=== PATIENT | male | born 1995 | race Caucasian/White ===

== ENCOUNTER 2024-12-03 05:43 | Emergency (ER) | payer BC, SELFPAY ==
--- NOTE | ~2024-12-03 | CT_ITS ---
EXAMINATION: CT abdomen pelvis w con DATE: 12/03/2024 06:59 INDICATION: Abdominal pain TECHNIQUE: Computed tomography (CT) of the abdomen and pelvis was performed with 100 mL Omnipaque-350 intravenous contrast. Automated exposure control and iterative reconstruction technique were employed. The dose-length product was 262.90 mGy-cm. COMPARISON: None FINDINGS: Lung bases are clear. Heart size is normal. No pericardial or pleural effusion. Small sliding-type hiatal hernia. Liver, gallbladder, spleen and pancreas, bilateral adrenal glands and right kidney are normal. Delayed left nephrogram, mild hydroureteronephrosis and minimal perinephric stranding secondary to obstructing 3 mm stone at the left ureterovesicular junction. There are couple hypodense lesions in left kidney of slightly greater than simple fluid attenuation, the larger measuring 1.6 cm most likely representing complex proteinaceous/hemorrhagic cysts although differential includes solid neoplasm. Bladder is normal. Bowels including the appendix are normal. No free intraperitoneal gas or fluid. No pathologically enlarged abdominal or pelvic lymphadenopathy. L2 bone [place]. IMPRESSION: 1. Obstructing 3 mm stone at the left ureterovesicular junction with mild left hydroureteronephrosis. 2. Couple indeterminate left renal lesions the larger measuring 1.6 cm likely proteinaceous/hemorrhagic cysts although differential would include solid neoplasm. This would be unlikely given patient age but could consider follow-up renal ultrasound. 3. Small sliding-type hiatal hernia. Reviewed, dictated and finalized at location A. IMPRESSION: 1. Obstructing 3 mm stone at the left ureterovesicular junction with mild left hydroureteronephrosis. 2. Couple indeterminate left renal lesions the larger measuring 1.6 cm likely p roteinaceous/hemorrhagic cysts although differential would include solid neopla sm. This would be unlikely given patient age but could consider follow-up renal ultrasound. 3. Small sliding-type hiatal hernia.
[2024-12-03 05:59] VITALS: BP 146/91; PULSE 84; RESP 20; TEMP 36.2; O2SAT 100
--- NOTE | 2024-12-03 06:12 | ED.GENADULT ---
HPI - General Adult General Chief complaint: Abdominal Pain <Isaak Lai MD - Last Filed: 12/03/24 06:44> Stated complaint: abd pain <Isaak Lai MD - Last Filed: 12/03/24 06:44> Time Seen by Provider: 12/03/24 06:06 <Isaak Lai MD - Last Filed: 12/03/24 06:44> History of Present Illness HPI narrative: Patient 29-year-old gentleman presents emergency department chief complaint of abdominal pain. Patient reports he woke up about 3 hours ago and started having pain on the left side of his abdomen patient reports a fullness patient reports not improved by anything reports no diarrhea reports he has felt a little nauseated but no vomiting. Patient reports no prior surgical history denies fever <Isaak Lai MD - Last Filed: 12/03/24 06:44> Related Data Allergies/adverse reactions: Allergies Allergy/AdvReac Type Severity Reaction Status Date / Time No Known Allergies Allergy Verified 12/03/24 07:35 <Isaak Lai MD - Last Filed: 12/03/24 06:44> Review of Systems Review of Systems: A 10 system review of systems was completed on the patient and is negative except for what is stated in the HPI. Nursing and ancillary documentation was reviewed. <Isaak Lai MD - Last Filed: 12/03/24 06:44> Exam Narrative: GENERAL: Well-appearing, well-nourished, and in no acute distress. HEAD: Normocephalic, atraumatic. EYES: PERRLA and EOMI. ENT: Nares clear, no rhinorrhea or epistaxis. Mucous membranes moist. NECK: Supple. CHEST: Clear to auscultation. No respiratory distress. HEART: Regular rate and rhythm. No murmur heard. Normal peripheral pulses. ABDOMEN: Soft, tenderness to palpation on the left side of the abdomen, nondistended, normal active bowel sounds. EXTREMITIES: Normal range of motion. No edema. SKIN: Warm, dry, no rash. NEURO: No focal deficits. Alert and oriented x3. PSYCH: Normal mood and affect. <Isaak Lai MD - Last Filed: 12/03/24 06:44> Course Course Emergency Course: I assumed care of this patient at shift change with pending CT and disposition. I did re-examine the patient he still continues to have pain his mom who is at bedside states that Dilaudid helps with pain requesting IV Dilaudid. I did inform him about the lab work and CT findings. <Tristan Daley MD - Last Filed: 12/03/24 10:00> Reevaluation(s) Date: 12/03/24 <Tristan Daley MD - Last Filed: 12/03/24 10:00> Time: 09:54 <Tristan Daley MD - Last Filed: 12/03/24 10:00> Reevaluation #2: Patient feeling much better. Advised him to drink more fluids take medication as prescribed, follow-up with the urologist. <Tristan Daley MD - Last Filed: 12/03/24 10:00> Vital Signs Vital signs: Vital Signs Temperature 36.2 C L 12/03/24 05:59 Pulse Rate 84 12/03/24 05:59 Respiratory Rate 20 12/03/24 05:59 Blood Pressure 146/91 H 12/03/24 05:59 Pulse Oximetry 100 12/03/24 05:59 Temperature 36.2 C L 12/03/24 05:59 Pulse Rate 74 12/03/24 08:24 Respiratory Rate 14 12/03/24 08:24 Blood Pressure 139/88 12/03/24 08:24 Pulse Oximetry 98 12/03/24 08:24 <Isaak Lai MD - Last Filed: 12/03/24 06:44> Vital Signs Temperature 36.2 C L 12/03/24 05:59 Pulse Rate 84 12/03/24 05:59 Respiratory Rate 20 12/03/24 05:59 Blood Pressure 146/91 H 12/03/24 05:59 Pulse Oximetry 100 12/03/24 05:59 Temperature 36.2 C L 12/03/24 05:59 Pulse Rate 74 12/03/24 08:24 Respiratory Rate 14 12/03/24 08:24 Blood Pressure 139/88 12/03/24 08:24 Pulse Oximetry 98 12/03/24 08:24 <Tristan Daley MD - Last Filed: 12/03/24 10:00> Medical Decision Making MDM Narrative Medical decision making narrative: Differential diagnosis includes gastritis, colitis cystitis, pancreatitis, intra-abdominal infection, gastroenteritis <Isaak Lai MD - Last Filed: 12/03/24 06:44> Vital Signs Vital Signs: Vital Signs Temperature 36.2 C L 12/03/24 05:59 Pulse Rate 84 12/03/24 05:59 Respiratory Rate 20 12/03/24 05:59 Blood Pressure 146/91 H 12/03/24 05:59 Pulse Oximetry 100 12/03/24 05:59 Temperature 36.2 C L 12/03/24 05:59 Pulse Rate 74 12/03/24 08:24 Respiratory Rate 14 12/03/24 08:24 Blood Pressure 139/88 12/03/24 08:24 Pulse Oximetry 98 12/03/24 08:24 <Isaak Lai MD - Last Filed: 12/03/24 06:44> Vital Signs Temperature 36.2 C L 12/03/24 05:59 Pulse Rate 84 12/03/24 05:59 Respiratory Rate 20 12/03/24 05:59 Blood Pressure 146/91 H 12/03/24 05:59 Pulse Oximetry 100 12/03/24 05:59 Temperature 36.2 C L 12/03/24 05:59 Pulse Rate 74 12/03/24 08:24 Respiratory Rate 14 12/03/24 08:24 Blood Pressure 139/88 12/03/24 08:24 Pulse Oximetry 98 12/03/24 08:24 <Tristan Daley MD - Last Filed: 12/03/24 10:00> Lab Data Result diagrams: 12/03/24 05:56 12/03/24 05:56 <Isaak Lai MD - Last Filed: 12/03/24 06:44> Labs: Lab Results 12/03/24 Range/Units 05:56 WBC 7.7 (4.5-10.0) K/mm3 RBC 4.55 L (4.6-6.20) M/mm3 Hgb 14.1 (14.0-18.0) g/dL Hct 41.4 L (42.0-52.0) % MCV 91.0 (80-100) fl MCH 31.0 (26-34) pg MCHC 34.1 (32-36) g/dl RDW 12.1 (11.5-14.5) % Plt Count 254 (150-375) k/mm3 MPV 9.1 (7.4-10.4) fl Immature Gran % (Auto) 0.4 (0-0.5) % Neut % (Auto) 42.0 L (45.5-73.1) % Lymph % (Auto) 42.5 (18.3-44.2) % [place] % (Auto) 9.5 H (2.6-8.5) % Eos % (Auto) 4.8 H (0-4.4) % Baso % (Auto) 0.8 (0.2-1.2) % Lymph # (Auto) 3.28 H (0.9-3.2) K/mm3 [place] # (Auto) 0.7 H (0.1-0.6) K/mm3 Eos # (Auto) 0.4 H (0-0.3) K/mm3 Baso # (Auto) 0.1 (0.0-0.1) K/mm3 Abs Immat Gran (auto) 0.03 (0.00-0.031) K/mm3 Absolute Neuts (auto) 3.3 (1.3-6.7) K/mm3 Absolute Nucleated RBC 0.000 (0.0-0.012) K/mm3 Nucleated RBC % 0.0 (0.0-0.2) % Sodium 137 (137-145) mmol/L Potassium 3.5 (3.4-5.0) mmol/L Chloride 104 (98-107) mmol/L Carbon Dioxide 23 (22-30) mmol/L Anion Gap 10 (4-12) mmol/L BUN 18 (9-20) mg/dL Creatinine 1.03 (0.7-1.3) mg/dL Estim Creat Clear Calc 98 ml/min Estimated GFR > 60 (59 - ) Glucose 134 H (65-110) mg/dL Calcium 9.1 (8.4-10.2) mg/dL Total Bilirubin 0.3 (0.2-1.3) mg/dL AST 28 (17-59) U/L ALT 22 (6-50) U/L Alkaline Phosphatase 74 (38-126) U/L Total Protein 7.5 (6.3-8.2) g/dL Albumin 4.6 (3.5-5.1) g/dL Lipase 457 H (23-300) U/L Urine Color Yellow (Yellow) Urine Appearance Cloudy H (Clear) Urine pH 5.5 (5.0-9.0) Ur Specific [place] 1.019 (1.001-1.035) Urine Protein Negative (Negative) mg/dL Urine Glucose (UA) Negative (Negative) mg/dL Urine Ketones Negative (Negative) mg/dL Ur Blood (Man) 3+ H (Negative) Urine Nitrate Negative (Negative) Urine Bilirubin Negative (Negative) Urine Urobilinogen 0.2 (<2.0) mg/dL Leukocyte Esterase Rfl Negative (Negative) GIRMA/UL Urine RBC >100 H (0-2) /hpf Urine WBC 0-5 (0-3) /hpf Ur Squamous Epith Cells None seen (Few) /hpf Urine Bacteria None seen /hpf Urine Casts 0-2 <Isaak Lai MD - Last Filed: 12/03/24 06:44> Lab Results 12/03/24 Range/Units 05:56 WBC 7.7 (4.5-10.0) K/mm3 RBC 4.55 L (4.6-6.20) M/mm3 Hgb 14.1 (14.0-18.0) g/dL Hct 41.4 L (42.0-52.0) % MCV 91.0 (80-100) fl MCH 31.0 (26-34) pg MCHC 34.1 (32-36) g/dl RDW 12.1 (11.5-14.5) % Plt Count 254 (150-375) k/mm3 MPV 9.1 (7.4-10.4) fl Immature Gran % (Auto) 0.4 (0-0.5) % Neut % (Auto) 42.0 L (45.5-73.1) % Lymph % (Auto) 42.5 (18.3-44.2) % [place] % (Auto) 9.5 H (2.6-8.5) % Eos % (Auto) 4.8 H (0-4.4) % Baso % (Auto) 0.8 (0.2-1.2) % Lymph # (Auto) 3.28 H (0.9-3.2) K/mm3 [place] # (Auto) 0.7 H (0.1-0.6) K/mm3 Eos # (Auto) 0.4 H (0-0.3) K/mm3 Baso # (Auto) 0.1 (0.0-0.1) K/mm3 Abs Immat Gran (auto) 0.03 (0.00-0.031) K/mm3 Absolute Neuts (auto) 3.3 (1.3-6.7) K/mm3 Absolute Nucleated RBC 0.000 (0.0-0.012) K/mm3 Nucleated RBC % 0.0 (0.0-0.2) % Sodium 137 (137-145) mmol/L Potassium 3.5 (3.4-5.0) mmol/L Chloride 104 (98-107) mmol/L Carbon Dioxide 23 (22-30) mmol/L Anion Gap 10 (4-12) mmol/L BUN 18 (9-20) mg/dL Creatinine 1.03 (0.7-1.3) mg/dL Estim Creat Clear Calc 98 ml/min Estimated GFR > 60 (59 - ) Glucose 134 H (65-110) mg/dL Calcium 9.1 (8.4-10.2) mg/dL Total Bilirubin 0.3 (0.2-1.3) mg/dL AST 28 (17-59) U/L ALT 22 (6-50) U/L Alkaline Phosphatase 74 (38-126) U/L Total Protein 7.5 (6.3-8.2) g/dL Albumin 4.6 (3.5-5.1) g/dL Lipase 457 H (23-300) U/L Urine Color Yellow (Yellow) Urine Appearance Cloudy H (Clear) Urine pH 5.5 (5.0-9.0) Ur Specific [place] 1.019 (1.001-1.035) Urine Protein Negative (Negative) mg/dL Urine Glucose (UA) Negative (Negative) mg/dL Urine Ketones Negative (Negative) mg/dL Ur Blood (Man) 3+ H (Negative) Urine Nitrate Negative (Negative) Urine Bilirubin Negative (Negative) Urine Urobilinogen 0.2 (<2.0) mg/dL Leukocyte Esterase Rfl Negative (Negative) GIRMA/UL Urine RBC >100 H (0-2) /hpf Urine WBC 0-5 (0-3) /hpf Ur Squamous Epith Cells None seen (Few) /hpf Urine Bacteria None seen /hpf Urine Casts 0-2 <Tristan Daley MD - Last Filed: 12/03/24 10:00> Discharge Plan Discharge Clinical Impression: Ureterolithiasis <Isaak Lai MD - Last Filed: 12/03/24 06:44> Patient Disposition: Home <Isaak Lai MD - Last Filed: 12/03/24 06:44> Condition: Stable <Isaak Lai MD - Last Filed: 12/03/24 06:44> Instructions: Kidney Stones (ED) <Isaak Lai MD - Last Filed: 12/03/24 06:44> Additional Instructions: Drink more fluids, take medications as prescribed, follow with your doctor or Urologist. <Isaak Lai MD - Last Filed: 12/03/24 06:44> Patient Language: Polish <Isaak Lai MD - Last Filed: 12/03/24 06:44> Prescriptions: New ondansetron 4 mg tablet,disintegrating 4 mg PO Q6-8H PRN (Reason: nausea and vomiting) Qty: 14 0RF hydrocodone-acetaminophen 5-325 mg tablet 1 tablet PO Q6H PRN (Reason: pain) Qty: 14 0RF tamsulosin [Flomax] 0.4 mg capsule 0.4 mg PO DAILY Qty: 7 0RF <Isaak Lai MD - Last Filed: 12/03/24 06:44> Follow-up/Referrals: Rocco Miranda MD [Physician, Urology] PHYSICIAN,[employer] [Primary Care Provider, Internal Medicine] <Isaak Lai MD - Last Filed: 12/03/24 06:44> Time of Disposition: 09:56 <Isaak Lai MD - Last Filed: 12/03/24 06:44> 09:56 <Tristan Daley MD - Last Filed: 12/03/24 10:00>
[2024-12-03 06:15] LABS: Hematocrit 41.4 % (42.0-52.0); Hemoglobin 14.1 g/dL (14.0-18.0); Immature Granulocyte Percent A 0.4 % (0-0.5); Lymphocytes Absolute Auto 3.28 K/mm3 (0.9-3.2); Mean Corpuscular HGB Conc 34.1 g/dl (32-36); Mean Corpuscular Hemoglobin 31.0 pg (26-34); Mean Corpuscular Volume 91.0 fl (80-100); Nucleated Red Blood Cells Absolute Auto 0.000 K/mm3 (0.0-0.012); Nucleated Red Blood Cells Perc 0.0 % (0.0-0.2); Platelet Count Result 254 k/mm3 (150-375); Red Blood Count 4.55 M/mm3 (4.6-6.20); White Blood Count 7.7 K/mm3 (4.5-10.0)
[2024-12-03] MEDS: ONDANSETRON INJ 4 MG/2 ML VIAL IV PUSH (06:15)
[2024-12-03] MEDS: SODIUM CHLORIDE 0.9% IV 1,000 ML 999 ML IV CONT (06:15)
[2024-12-03] MEDS: MORPHINE SULFATE (*CRX) 4 MG/ML INJ 2 MG IV PUSH (06:15)
[2024-12-03 06:23] LABS: Add Urine Microscopic? YES; Appearance Urine Cloudy (Clear); Glucose Urine UA Negative (Negative); Leukocyte Esterase Ur Negative LEU/UL (Negative); Nitrate Urine Negative (Negative); Non Pathogenic Casts 0-2; Specific Grav Ur 1.019 (1.001-1.035)
[2024-12-03 06:35] LABS: Alanine Aminotransferase 22 U/L (6-50); Albumin Level 4.6 g/dL (3.5-5.1); Alkaline Phosphatase 74 U/L (38-126); Anion Gap 10 mmol/L (4-12); Aspartate Amino Transferase 28 U/L (17-59); Bilirubin,Total 0.3 mg/dL (0.2-1.3); Blood Urea Nitrogen 18 mg/dL (9-20); Calcium 9.1 mg/dL (8.4-10.2); Carbon Dioxide 23 mmol/L (22-30); Chloride 104 mmol/L (98-107); Estimated CRCL calculation 98 ml/min; Estimated Glomerular Filt Rate > 60; Glucose 134 mg/dL (65-110); Lipase 457 U/L (23-300); Potassium 3.5 mmol/L (3.4-5.0); Sodium 137 mmol/L (137-145); Total Protein 7.5 g/dL (6.3-8.2)
[2024-12-03 07:09] VITALS: BP 146/82
[2024-12-03] MEDS: HYDROmorphone HCL INJ (*CRX) 1 MG/ML SYR 0.5 MG IV PUSH (08:22)
[2024-12-03] MEDS: KETOROLAC 15 MG/ML VIAL (*BKC) IV PUSH (08:22)
[2024-12-03 08:24] VITALS: BP 139/88; PULSE 74; RESP 14; O2SAT 98
[2024-12-03 10:11] VITALS: BP 140/84; PULSE 87; RESP 20; TEMP 36.6; O2SAT 99
== END 2024-12-03 10:15 | disposition home or self-care (01) ==
PROVIDERS: Emergency Medicine; Emergency Provider Family Medicine
DX: N20.1 Calculus of ureter (principal)
CPT/HCPCS: 36415; 74177; 80053; 81001; 83690; 85025; 96361; 96374; 96375; 99284; J1171; J1885; J2270; J2405; J7030; Q9967